=== PATIENT | female | born 1950 | race Caucasian/White ===

== ENCOUNTER 2020-07-05 14:41 | Inpatient (IN) | payer MEDICARE, SELFPAY ==
[~2020-07-05 14:41] MED LIST: Iopamidol-370 76% 500 ML 1 ML ONE
[2020-07-05 15:23] LABS: #Eosinphils 0.1 thou/uL (0.0-0.7); #Monocytes 0.5 thou/uL (0.11-0.59); #Neutrophils 6.9 thou/uL (1.40-6.50); %Basophils 0.3 % (0.0-1.0); %Lymphocytes 11.9 % (21.0-51.0); %Monocytes 5.4 % (0.0-10.0); %Neutrophils 81.3 % (42.0-75.0); Mean Corpuscular HGB CONC 32.4 g/dL (32.0-36.0); Mean Corpuscular Hemoglobin 30.9 pg (27.0-31.0); Mean Corpuscular Volume 95.4 fL (78.0-98.0); Mean Platelet Volume 9.7 fL (7.4-10.4); Platelet Count 221 thou/uL (130-400); Red Blood Cell (RBC) Count 4.53 mill/uL (4.20-5.40); White Blood Cell (WBC) Count 8.5 thou/uL (4.8-10.8)
[2020-07-05] MEDS ORDERED: Fentanyl 100 MCG/2 ML VIAL ONE (15:31)
[2020-07-05] MEDS ORDERED: Ondansetron PF 4 MG/2 ML Vial ONE (15:32)
[2020-07-05] MEDS ORDERED: Boostrix 0.5 ML (Tdap) VIAL ONE (15:38)
[2020-07-05 15:57] LABS: ALT (SGPT) 22 U/L (8-55); AST (SGOT) 36 U/L (5-34); Albumin 3.7 g/dL (3.4-4.8); Alkaline Phosphatase 131 U/L (40-110); Anion Gap 16 mmol/L (10-20); BUN (Urea Nitrogen) 17 mg/dL (9.8-20.1); Bilirubin, Total 0.4 mg/dL (0.2-1.2); Calc. Creatinine Clearance 0 mL/min (70-130); Calcium 9.1 mg/dL (7.8-10.44); Carbon Dioxide 21 mmol/L (23-31); Chloride 104 mmol/L (98-107); Globulin 3.6 g/dL (2.4-3.5); Glucose 177 mg/dL (80-115); Potassium 4.6 mmol/L (3.5-5.1); Protein, Total 7.3 g/dL (5.8-8.1); Sodium 136 mmol/L (136-145)
[2020-07-05 16:47] LABS: INR-International Normal Ratio 1.1; PTT 27.8 sec (22.9-36.1)
[2020-07-05] MEDS ORDERED: Morphine 4 MG/ML VIAL ONE (17:16)
[2020-07-05] MEDS ORDERED: Insulin Regular 300 UNITS/3 ML VIAL SC PRN (20:43)
[2020-07-05] MEDS ORDERED: Dextrose 50% Abboject 50 ML SYRINGE SLOW IVP PRN (20:43)
[2020-07-05] MEDS ORDERED: Ondansetron ODT 4 MG TAB PO PRN (20:43)
[2020-07-05] MEDS ORDERED: hydrALAZINE 20 MG/ML VIAL SLOW IVP PRN (20:43)
[2020-07-05] MEDS ORDERED: Sodium Chloride 0.9% 1,000 ML IV SCH (20:43)
[2020-07-05] MEDS ORDERED: Ondansetron PF 4 MG/2 ML Vial IVP PRN (20:43)
[2020-07-05] MEDS ORDERED: Ibuprofen 800 MG TAB PO PRN (20:43)
[2020-07-05] MEDS ORDERED: traMADol HCl 50 MG TAB PO PRN (20:43)
[2020-07-05] MEDS ORDERED: Dextrose 5% in Water 1,000 ML IV PRN (20:43)
[2020-07-05] MEDS: Morphine 2 MG/ML VIAL SLOW IVP PRN ×2 (21:10→23:09)
[2020-07-05] MEDS: Famotidine 20 MG TAB PO SCH (21:55)
[2020-07-05] MEDS: Gabapentin 100 MG CAP PO SCH (21:55)
[2020-07-05] MEDS: Cyclobenzaprine 10 MG TAB PO PRN (21:57)
[2020-07-05] MEDS: Acetaminophen 325 MG TAB PO SCH (23:08)
[2020-07-06 00:55] VITALS: BMI 46.1
[2020-07-06 02:38] LABS: SARS-CoV-2 PCR by NAA Not Detected (NotDetected)
[2020-07-06] MEDS: Morphine 2 MG/ML VIAL SLOW IVP PRN ×2 (03:56→11:14)
[2020-07-06] MEDS: traMADol HCl 50 MG TAB PO PRN ×2 (05:02→12:24)
[2020-07-06] MEDS: Acetaminophen 325 MG TAB PO SCH ×4 (05:03→23:16)
[2020-07-06 05:09] LABS: #Eosinphils 0.1 thou/uL (0.0-0.7); #Lymphocytes 1.1 thou/uL (1.20-3.40); #Monocytes 0.6 thou/uL (0.11-0.59); #Neutrophils 6.2 thou/uL (1.40-6.50); %Basophils 0.3 % (0.0-1.0); %Eosinophils 0.8 % (0.0-10.0); %Monocytes 7.1 % (0.0-10.0); %Neutrophils 77.7 % (42.0-75.0); Hemoglobin 12.5 g/dL (12.0-16.0); Mean Platelet Volume 9.6 fL (7.4-10.4); Platelet Count 206 thou/uL (130-400); RBC Distribution Width 11.9 % (11.5-14.5); Red Blood Cell (RBC) Count 3.92 mill/uL (4.20-5.40)
[2020-07-06 05:26] LABS: Anion Gap 13 mmol/L (10-20); BUN (Urea Nitrogen) 17 mg/dL (9.8-20.1); Calc. Creatinine Clearance 150 mL/min (70-130); Calcium 8.4 mg/dL (7.8-10.44); Carbon Dioxide 21 mmol/L (23-31); Chloride 107 mmol/L (98-107); Glucose 185 mg/dL (80-115); Potassium 3.7 mmol/L (3.5-5.1); Sodium 137 mmol/L (136-145)
[2020-07-06] MEDS: Insulin Regular 300 UNITS/3 ML VIAL SC PRN ×3 (05:55→15:37)
[2020-07-06] MEDS: Bisoprolol Fumarate 5 MG TAB PO SCH ×2 (09:28→21:22)
[2020-07-06] MEDS: Cyclobenzaprine 10 MG TAB PO PRN (09:29)
[2020-07-06] MEDS: Famotidine 20 MG TAB PO SCH ×2 (09:29→21:23)
[2020-07-06] MEDS: Senokot S 8.6-50 MG TAB PO SCH ×2 (09:31→21:24)
[2020-07-06] MEDS: Gabapentin 100 MG CAP PO SCH ×2 (09:32→21:24)
[2020-07-06] MEDS: Polyethylene Glycol 3350 17 GM Packet PO SCH (09:32)
[2020-07-06] MEDS: Ibuprofen 200 MG TAB PO SCH ×2 (15:38→21:23)
[2020-07-06] MEDS: traMADol HCl 50 MG TAB PO SCH ×3 (18:11→23:21)
[2020-07-06] MEDS: Anastrozole 1 MG TAB PO SCH (21:22)
[2020-07-06] MEDS: Acetaminophen/Codeine 30-300mg Tablet PO PRN (23:21)
[2020-07-07] MEDS: Acetaminophen/Codeine 30-300mg Tablet PO PRN (05:18)
[2020-07-07] MEDS: Ibuprofen 200 MG TAB PO SCH ×3 (05:19→20:53)
[2020-07-07] MEDS: Acetaminophen 325 MG TAB PO SCH ×3 (05:19→18:11)
[2020-07-07] MEDS: traMADol HCl 50 MG TAB PO SCH ×3 (05:26→18:12)
[2020-07-07] MEDS ORDERED: Enoxaparin Sodium 30 MG/0.3 ML SYRINGE SC SCH (09:00)
[2020-07-07] MEDS ORDERED: Prochlorperazine Edisylate 10 MG in Sodium Chloride 0.9% 50 ML IVPB SCH (09:15)
[2020-07-07] MEDS: Bisoprolol Fumarate 5 MG TAB PO SCH ×2 (10:31→20:53)
[2020-07-07] MEDS: Senokot S 8.6-50 MG TAB PO SCH ×2 (10:31→20:55)
[2020-07-07] MEDS: Cyclobenzaprine 10 MG TAB PO PRN (10:31)
[2020-07-07] MEDS: Famotidine 20 MG TAB PO SCH ×2 (10:32→20:55)
[2020-07-07] MEDS: Polyethylene Glycol 3350 17 GM Packet PO SCH (10:32)
[2020-07-07] MEDS: Flecainide 50 MG TAB PO SCH ×2 (10:32→20:53)
[2020-07-07] MEDS: Gabapentin 100 MG CAP PO SCH ×2 (11:21→20:54)
[2020-07-07] MEDS: Rivaroxaban 10 MG TAB PO SCH (20:55)
[2020-07-07] MEDS: Anastrozole 1 MG TAB PO SCH (20:55)
[2020-07-07] MEDS ORDERED: ROTIGOTINE 8 MG TD SCH ×2 (21:00)
[2020-07-08] MEDS: Acetaminophen 325 MG TAB PO SCH ×4 (00:16→18:02)
[2020-07-08] MEDS: traMADol HCl 50 MG TAB PO SCH ×4 (00:16→18:04)
[2020-07-08] MEDS: Ibuprofen 200 MG TAB PO SCH ×3 (05:33→21:11)
[2020-07-08] MEDS: Bisoprolol Fumarate 5 MG TAB PO SCH ×2 (09:24→21:24)
[2020-07-08] MEDS: Gabapentin 100 MG CAP PO SCH ×2 (09:25→21:10)
[2020-07-08] MEDS: Famotidine 20 MG TAB PO SCH ×2 (09:25→21:11)
[2020-07-08] MEDS: Flecainide 50 MG TAB PO SCH ×2 (09:26→21:09)
[2020-07-08] MEDS: Senokot S 8.6-50 MG TAB PO SCH ×2 (09:28→21:12)
[2020-07-08] MEDS: Polyethylene Glycol 3350 17 GM Packet PO SCH (09:28)
[2020-07-08] MEDS: Acetaminophen/Codeine 30-300mg Tablet PO PRN ×3 (09:32→21:12)
[2020-07-08] MEDS: Insulin Regular 300 UNITS/3 ML VIAL SC PRN (11:41)
[2020-07-08] MEDS: Anastrozole 1 MG TAB PO SCH (21:09)
[2020-07-08] MEDS: Rivaroxaban 10 MG TAB PO SCH (21:10)
[2020-07-08] MEDS: Cyclobenzaprine 10 MG TAB PO PRN (21:11)
[2020-07-09] MEDS: Acetaminophen 325 MG TAB PO SCH ×3 (00:12→13:04)
[2020-07-09] MEDS: traMADol HCl 50 MG TAB PO SCH ×3 (00:12→13:05)
[2020-07-09] MEDS: Ibuprofen 200 MG TAB PO SCH (06:06)
[2020-07-09] MEDS: Senokot S 8.6-50 MG TAB PO SCH (09:35)
[2020-07-09] MEDS: Gabapentin 100 MG CAP PO SCH (09:36)
[2020-07-09] MEDS: Famotidine 20 MG TAB PO SCH (09:36)
[2020-07-09] MEDS: Flecainide 50 MG TAB PO SCH (09:37)
[2020-07-09] MEDS: Polyethylene Glycol 3350 17 GM Packet PO SCH (09:38)
[2020-07-09 11:51] VITALS: BP 147/67; TEMP 97.6
[2020-07-09] MEDS: Bisoprolol Fumarate 5 MG TAB PO SCH (13:03)
== END 2020-07-09 14:10 | disposition home or self-care (01) | DRG 184 ==
LOC: ERS 14:41 → SURG B 17:43
PROVIDERS: ADMIT Surgery; ATTEND Surgery
DX: S22.41XA Multiple fractures of ribs, right side, initial encounter for closed fracture (principal); Z68.42 Body mass index [BMI] 45.0-49.9, adult; I10 Essential (primary) hypertension; E11.9 Type 2 diabetes mellitus without complications; M19.90 Unspecified osteoarthritis, unspecified site; E66.01 Morbid (severe) obesity due to excess calories; F41.9 Anxiety disorder, unspecified; F32.9 Major depressive disorder, single episode, unspecified; E78.5 Hyperlipidemia, unspecified; G25.81 Restless legs syndrome; S50.811A Abrasion of right forearm, initial encounter; S20.319A Abrasion of unspecified front wall of thorax, initial encounter; Z20.822 Contact with and (suspected) exposure to COVID-19; Z88.1 Allergy status to other antibiotic agents; V47.0XXA Car driver injured in collision with fixed or stationary object in nontraffic accident, initial encounter; Z88.2 Allergy status to sulfonamides; Z88.8 Allergy status to other drugs, medicaments and biological substances; Z85.3 Personal history of malignant neoplasm of breast; Z98.84 Bariatric surgery status; Z90.710 Acquired absence of both cervix and uterus; Z90.89 Acquired absence of other organs; Z90.13 Acquired absence of bilateral breasts and nipples
CPT/HCPCS: 36415; 36416; 70450; 71260; 72125; 74177; 80048; 80053; 83690; 84484; 85025; 85610; 85730; 87635; 90471; 90715; 93005; 96374; 96375; G0390; J0780; J1815; J2270; J2405; J3010; Q0162; Q9967; U0003; U0005